=== PATIENT | female | born 2000 | race Caucasian/White ===

== ENCOUNTER 2022-02-28 15:51 | Emergency (ER) | payer BC ==
[~2022-02-28] VITALS: Ht 170.2 cm; Wt 103.0 kg
[2022-02-28 15:54] VITALS: BP 136/79
--- NOTE | 2022-02-28 16:26 | NUR ---
Patient ambulated to bed 3.
--- NOTE | 2022-02-28 17:16 | NUR ---
21 Y/O FEMALE BIB SELF REFERRED BY OB CLIN[facility] FOR STAT US. PER PT NOTED WITH SPOTTING X2 MONTHS, DENIES ANY ABD PAIN OR CRAMPING, DENIES ANY CLOTS. LMP 11/19/21, [id number]. pmh: denies nka med: prenatals
--- NOTE | 2022-02-28 17:30 | NUR ---
Ultrasound at bedside.
[2022-02-28 17:33] LABS: BASOPHILS # (AUTO) 0.1 K/uL (0.00-0.22); BASOPHILS % (AUTO) 0.6 % (0.0-2.0); EOSINOPHILS # (AUTO) 0.3 K/uL (0-0.4); EOSINOPHILS % (AUTO) 2.2 % (0.0-4.0); HEMATOCRIT 33.5 % (36-48); LYMPHOCYTES # (AUTO) 3.3 K/uL (2.5-16.5); LYMPHOCYTES % (AUTO) 21.3 % (20.5-51.1); MEAN CORPUSCULAR HEMOGLOBIN 26 pg (27-31); MEAN CORPUSCULAR HGB CONC 33 g/dL (33-37); MEAN CORPUSCULAR VOLUME 79.9 fL (80-94); MONOCYTES % (AUTO) 6.7 % (1.7-9.3); NEUTROPHILS # (AUTO) 10.7 K/uL (1.8-7.7); NEUTROPHILS % (AUTO) 69.2 % (42.2-75.2); PLATELET COUNT (AUTO) 379 K/uL (140-450); RED BLOOD CELL COUNT(AUTO) 4.19 MIL/uL (4.20-5.40); RED CELL DISTRIBUTION WIDTH 16.3 % (11.6-13.7); WHITE BLOOD COUNT (AUTO) 15.5 K/uL (4.8-10.8)
[2022-02-28 17:47] LABS: APPEARANCE,URINE SL CLOUDY (CLEAR); BILIRUBIN,URINE NEGATIVE (NEGATIVE); BLOOD, URINE 3+ (NEGATIVE); COLOR,URINE YELLOW (YELLOW); LEUKOCYTE ESTERASE ,URINE NEGATIVE (NEGATIVE); NITRITE, URINE NEGATIVE (NEGATIVE); UGLUCOSE NEGATIVE (NEGATIVE)
[2022-02-28 17:58] LABS: RBC,URINE 11-20 (MOD) /HPF (0-5); WBC,URINE 0-5 /HPF (0-5)
[2022-02-28 17:59] LABS: OTHER CASTS, URINE None Seen /LPF (None Seen)
[2022-02-28 18:42] VITALS: BP 111/68
--- NOTE | 2022-02-28 19:20 | NUR ---
Patient discharged with v/s stable. Written and verbal after care instructions ABOUT [facility] given and explained. Patient verbalized understanding. Ambulatory with steady gait. All questions addressed prior to discharge. Advised to follow up with PMD.
== END 2022-02-28 19:19 | disposition home or self-care (01) ==
LOC: MED 15:51
DX: O44.01 Complete placenta previa NOS or without hemorrhage, first trimester (principal); Z3A.12 12 weeks gestation of pregnancy
CPT/HCPCS: 36415; 76801; 81001; 81025; 84702; 85025; 86900; 86901; 99284; Q0092